=== PATIENT | male | born 1945 | race Caucasian/White ===

== ENCOUNTER 2021-12-27 02:17 | Inpatient (IN) | payer MEDICARE ==
[~2021-12-27] VITALS: Ht 177.8 cm; Wt 91.2 kg
[2021-12-27 03:42] LABS: BASOPHILS ABSOLUTE AUTO 0.05 K/mm3 (0.00-0.23); BASOPHILS PERCENT AUTO 1 % (0-2); EOSINOPHILS ABSOLUTE AUTO 0.36 K/mm3 (0.00-0.68); EOSINOPHILS PERCENT AUTO 6 % (0-6); Hematocrit 24.5 % (37.0-53.0); Hemoglobin 7.2 g/dL (13.5-17.5); IMMATURE GRAN ABSOLUTE AUTO 0.02 K/mm3 (0.00-0.10); IMMATURE GRAN PERCENT AUTO 0 % (0-1); LYMPHOCYTES ABSOLUTE AUTO 0.51 K/mm3 (0.84-5.20); LYMPHOCYTES PERCENT AUTO 8 % (21-46); MONOCYTES ABSOLUTE AUTO 0.64 K/mm3 (0.16-1.47); MONOCYTES PERCENT AUTO 10 % (4-13); Mean Corpuscular HGB 26.8 pg (26.0-34.0); Mean Corpuscular HGB Conc 29.4 g/dL (31.5-36.5); Mean Corpuscular Volume 91 fL (80-100); Mean Platelet Volume 10.1 fL (9.1-12.4); NEUTROPHILS ABSOLUTE AUTO 4.68 K/mm3 (1.96-9.15); NEUTROPHILS PERCENT AUTO 75 % (41-73); Platelet Count 84 K/mm3 (150-400); RDW Coefficient Variation 18.9 % (11.7-14.2); RDW Standard Deviation 62.1 fL (35.1-46.3); Red Blood Cell Count 2.69 M/mm3 (4.30-5.90); White Blood Cell Count 6.26 K/mm3 (4.00-11.30)
[2021-12-27 03:54] LABS: International Normalized Ratio 1.48; Prothrombin Time Results 15.1 Sec (9.7-11.5)
[2021-12-27 03:59] LABS: Albumin, Blood 3.1 g/dL (3.4-5.0); Albumin/Globulin Ratio 1.2 (0.8-1.8); Bun/Creatinine Ratio 28.9 (12.0-20.0); Calcium, Blood 9.7 mg/dL (8.5-10.1); Creatinine, Blood 4.57 mg/dL (0.60-1.20); Globulin, Blood 2.5 g/dL (2.2-4.0); Total Protein, Blood 5.6 g/dL (6.4-8.2)
[2021-12-27] MEDS ORDERED: ALLO300 PO (04:27)
[2021-12-27] MEDS ORDERED: ALBU90OI6 INH (04:27)
[2021-12-27] MEDS ORDERED: ATORVASTATIN CA80 M1 PO (04:28)
[2021-12-27] MEDS ORDERED: CALC.25 PO (04:30)
[2021-12-27] MEDS ORDERED: Vitamin B-12100 MCG PO (04:33)
[2021-12-27] MEDS ORDERED: Vitamin D1000 UNI1 PO (04:33)
[2021-12-27] MEDS ORDERED: BENADRYL25 MG PO (04:34)
[2021-12-27] MEDS ORDERED: EPIPEN0.3 MG/0.3 IM (04:34)
[2021-12-27] MEDS ORDERED: LISI20 PO (04:35)
[2021-12-27] MEDS ORDERED: METO2.5 PO (04:40)
[2021-12-27] MEDS ORDERED: METO50ER PO (04:41)
[2021-12-27] MEDS ORDERED: MINO2.5 PO (04:46)
[2021-12-27] MEDS ORDERED: PANT40 PO (04:47)
[2021-12-27] MEDS ORDERED: MIRALAX17 GM PO (04:47)
[2021-12-27] MEDS ORDERED: POTCHL20ER PO (04:48)
[2021-12-27] MEDS ORDERED: TORSE20 PO (04:49)
[2021-12-27] MEDS ORDERED: B-1100 M1 PO (04:49)
[2021-12-27] MEDS ORDERED: Tetrahydrozolin15 ML RIGHTEYE (04:49)
[2021-12-27] MEDS ORDERED: UBID10 PO (04:50)
--- NOTE | 2021-12-27 05:00 | NUR ---
ADMIT/SHIFT SUMMARY: Patient was direct admit from [facility] in [place]. Arrived via ambulance. SBA to toilet, reported no dizziness but did sway while ambulating. AOx3. [place], forgetful at times. Able to state history and meds. States had GI bleed back in June at which they found an ulcer. He was removed off blood thinners at that time. He did have small bright bloody BM that was two blood clots. Later he had passed another small blood clot. Reports some numbness in bilateral feet. Lung sounds with wheezes upper lobes, diminished on left lower lobe. Cough chronic clear thin sputum. HX of COPD. No o2. Placed on 2 L NC due to drop in sats while sleeping in the 80's. Chronic Afib on the monitor, with multiform PVC's rate 70-80's. BP soft, with MAP 60-65. ABD very large distention, firm, states he is suppose to have a thorocentsis today but now he is here. BT active. Very little urine noted in toilet, history of CKD 4, GFR 13, Creatine 4.57. Peripherial ulcer to left posterior of leg. Pic taken and in chart. New dressings to cover, he requested for the ferablue dressings to stay in place. New orders noted, will be type and cross and 1 unit of blood will be started. Per Dr. Tanika Awad was already consult. Will report to dayshift.
--- NOTE | 2021-12-27 07:19 | NUR ---
PT AWAKE, ALERT, BUT VERY RESTLESS. CURRENT CIWA 12, BUT PT ORIENTED TO SELF AND SURROUNDINGS AND ABLE TO FOLLOW COMMANDS. DR. HERZOG NOTIFIED OF CIWA AND PT MED WITH ATIVAN 2 MG IVP X 1.
[2021-12-27 07:29] LABS: Hematocrit 21.5 % (37.0-53.0); Hemoglobin 6.5 g/dL (13.5-17.5)
--- NOTE | 2021-12-27 08:00 | NUR ---
PT EXTREMELY RESTLESS AND AGITATED DESPITE MED WITH ATIVAN-SEE EMAR. DR. HERZOG AWARE. CIWA 30. ECG SHOWS AF WITH ECTOPY. RATE 80-100'S. MAP TRENDING 70'S. LUNGS WHEEZY TO UPPER LOBES AND DIMINISHED IN THE BASES. PT SOB WITH EXERTION, BUT MAINTAINS SATS<90% ON 2 LITERS NASAL CANULA. OCCASIONAL, NONPRODUCTIVE COUGH NOTED. ABDOMINAL ASCITES NOTED. PT HAS NOT VOIDED OR HAD A BM SO FAR THIS SHIFT. SKIN IF PALE, COOL, AND DIAPHORETIC.
--- NOTE | 2021-12-27 10:00 | NUR ---
PT REMAINS RESTLESS, AGITATED, AND CONFUSED. CIWA 30. DR. HERZOG AWARE-ORDER GIVEN TO INITIATE PRECEDEX DRIP-INITIATED @ 0.4 MCG/KG/MIN. SOFT WRIST RESTRAINTS PLACED FOR PT SAFETY. # 18 FR TEMP ABDI INSERTED AND U/A SENT PER INSERTION PROTOCOL.
--- NOTE | 2021-12-27 10:45 | NUR ---
PT INCONTINENT OF LARGE, BRIGHT, RED, BLOODY STOOL. MAP TRENDING 60-65. PT RESTING QUIETLY ON PRECEDEX DRIP WHEN NOT DISTURBED.BED BATH AND LINEN CHANGE COMPLETED-TOLERATED WELL.
--- NOTE | 2021-12-27 12:00 | NUR ---
DR. BALTAZAR UPDATED TO CURRENT VS AND STATUS. MD MADE AWARE THAT PT INCONTINENT OF A LARGE AMOUNT OF BRIGHT, RED, BLOODY STOOL. # 3 UNIT PRBC'S TRANSFUSING. MAP TRENDING LESS THAN 60. ORDER GIVEN FOR LEVOPHED DRIP. DR. BALTAZAR TO DO EGD WITH MAC @ APROX. 1500.
--- NOTE | 2021-12-27 12:25 | NUR ---
MAP STILL TRENDING LESS THAN 60. DR. HERZOG GIVEN UPDATE. ORDER GIVEN FOR PICC LINE. REPORT GIVEN TO GERRI MELVIN.
[2021-12-27 12:50] LABS: Source, Urine Foley catheter
[2021-12-27 13:03] LABS: Appearance, Urine Clear (Clear); Bilirubin, Urine Neg (Neg); Blood, Urine 2+ (Neg); Color, Urine Yellow (P-Yellow); Glucose Qualitative, Urine Neg (Neg); Ketones, Urine Neg (Neg); Leukocyte Esterase, Urine Neg (Neg); Nitrite, Urine Neg (Neg); Protein, Urine 2+ (Neg); Specific Gravity, Urine 1.015 (1.003-1.022); Urobilinogen, Urine NORM (Normal)
[2021-12-27 13:19] LABS: Bacteria Rare /hpf; Red Blood Cells, Urine 0-2 /hpf (0-2); Squamous Epithelial Cells Rare /hpf (Few); White Blood Cells, Urine 0-2 /hpf (0-5)
[2021-12-27 13:41] LABS: Hematocrit 22.6 % (37.0-53.0); Hemoglobin 6.9 g/dL (13.5-17.5)
[2021-12-27 14:59] LABS: Influenza A, PCR NEGATIVE (NEGATIVE); Influenza B, PCR NEGATIVE (NEGATIVE); Resp Syncytial Virus, PCR NEGATIVE (NEGATIVE); SARS-Cov-2 (COVID-19) PCR, MMC NEGATIVE (NEGATIVE)
--- NOTE | 2021-12-27 15:24 | NUR ---
12/27/21 1524 Max Cota See Anesthesia record DR CUENCA
--- NOTE | 2021-12-27 20:30 | NUR ---
ASSUMED CARE AT 1200. PT DROWSY BUT AROUSABLE ON 0.9 OF PRECEDEX. ORIENTEDX2. FOLLOWS COMMANDS. ON 4L NC. HYPOTENSIVE SHORTLY AFTER AND WAS STARTED ON LEVOPHED. PRECEDEX SLOWLY TITRATED OFF, SEE ICU FLOWSHEET. NOTED TO HAVE SIGNIFICANT ASCITES, DISCUSSED W DR. LOWE. TODAY PT RECIEVED A TOTAL OF 3U PRBCS, 2 U PLASMA, 1 UNIT PLATELETS. ALSO RECEIVED TXA AND VITAMIN K. SEE EMAR. AT THIS TIME, BP STABLE ON 4MCG/MIN OF LEVOPHED. LARGE BRIGHT RED LIQUID BM AFTER EGD, AWARE. NOW ON BIPAP AT 12/6 100% FIO2. GTTS: OCTREOTIDE, PROTONIX, LEVOPHED, TXA.
--- NOTE | 2021-12-27 20:47 | NUR ---
ASSUMED CARE OF PATIENT AT 1900, PT LYING IN BED WITH BIPAP IN PLACE 08/20 RATE 14, FIO2 100%, SATS LO 90'S. 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 DR. LAWSON IN TO REVIEW WITH H[employer] S[employer] PHYSICAL EDUCATION TEACHER, AWAITING OFFICIAL REPORT. HE RETURNS TO SAY THAT NOT A GOOD CANDIDATE TO SHIP, SPEAKING WITH . PHONE CALL TO TO UPDATE, SHE UNDERSTANDS, SAYS WILL COME IN THE MORNING. PT ASKED IF HE WOULD LIKE HIS HS MED REQUIP, HE STATES NO, HE WANTS TO HOLD IT. NO OTHER CHANGES.
--- NOTE | 2021-12-27 22:58 | NUR ---
PT WITH LARGE BLOODY STOOL, INCONTINENT. HAD ASKED TO USE THE TOILET IN THE ROOM BUT WAS UNABLE TO CONTROL HIS BOWELS. ASSISTED WITH THE CLEANING AND HE TOLERATED WELL. HE WAS ASKING ABOUT THE BIPAP AND HOW LONG HE NEEDED TO STAY ON IT. ENCOURAGEMENT GIVEN.
--- NOTE | 2021-12-28 02:58 | NUR ---
PT UP TO COMMODE IN THE ROOM AT 2330, 300ML DARK RED STOOL. RETURNED TO BED, PT WAS ADAMANT TO GET OUT OF BED. HE WAS WEAK, MOVED WITH ASSISTANCE. WAS SHORT OF BREATH. PT UP AGAIN AT 0200 TO USE THE COMMODE IN THE ROOM, 100ML OF RED STOOL. PT RETURNS TO BED. MORE ALERT AND ORIENTED. RETURNS TO BED, TAKES IN A COUPLE OF ICE CHIPS, RETURNS TO BIPAP. SLEEPING NOW. CALL LIGHT IN REACH.
[2021-12-28 04:16] LABS: Hemoglobin 7.4 g/dL (13.5-17.5); Mean Corpuscular HGB 27.8 pg (26.0-34.0); Mean Corpuscular HGB Conc 30.8 g/dL (31.5-36.5); Mean Corpuscular Volume 90 fL (80-100); Mean Platelet Volume 11.1 fL (9.1-12.4); Platelet Count 90 K/mm3 (150-400); RDW Coefficient Variation 18.5 % (11.7-14.2); RDW Standard Deviation 58.4 fL (35.1-46.3); Red Blood Cell Count 2.66 M/mm3 (4.30-5.90); White Blood Cell Count 8.37 K/mm3 (4.00-11.30)
[2021-12-28 04:40] LABS: Bun/Creatinine Ratio 27.9 (12.0-20.0); Calcium, Blood 8.9 mg/dL (8.5-10.1); Creatinine, Blood 4.52 mg/dL (0.60-1.20); Potassium, Blood 4.4 mmol/L (3.5-5.5)
--- NOTE | 2021-12-28 04:48 | NUR ---
DR RAMIREZ HERE TO SPEAK WITH PATIENT, PATIENT CONTINUES TO INSIST THAT HE BE A FULL CODE, THAT HE BE RESUSCITATED. HE WOULD LIKE THE FULL WORK UP. ORDERS ADDITIONAL PRBC'S-4 UNITS- AND FFP-2 UNITS. THE PROCESS HAS BEGUN, PT TOLERATING WELL. HE IS NOW HAVING HEMOPTOSIS.
--- NOTE | 2021-12-28 06:09 | NUR ---
TWO UNITS OF FFP GIVEN, 2ND UNIT OF PRBC'S STARTED. TOLERATING WELL, CONTINUES ON BIPAP. 08/20 70%. PT DOES DESATURATE WHEN OFF BIPAP, HE DROPS TO THE LOW 80S EVEN WITH NASAL CANNULA. CONTINUES TO ASK FOR ORAL INTAKE, ie COFFEE, OATMEAL, EGG. ALSO COMPLAINS OF STINGING AT URETHRA FROM ABDI CATH. NO OTHER COMPLAINTS. WILL CONTINUE BLOOD INFUSION, MONITOR AND REPORT OFF WHEN ABLE.
[2021-12-28 11:27] LABS: Hemoglobin 9.3 g/dL (13.5-17.5)
[2021-12-28 14:25] LABS: Hematocrit 27.7 % (37.0-53.0); Hemoglobin 8.8 g/dL (13.5-17.5)
--- NOTE | 2021-12-28 15:58 | NUR ---
Met with physician the patient and his family to review the seriousness of his condition and prognosis. physian reviewed his condition and that there are no interventions that will improve his health. Pt struggled with tracking conversation kept diverting the subject to his leagal issues and his out patient appointments. Concern for patients ability to make decisions. at bedside following the conversation was distraught by his prognosis. had to be very straight forward and address risk for sudden and need for hospice. Advised pt on how he could get the legal help he needs. discussed what hospice would look like. advised hism that if he went home to the [facility] he will end back up at the hospital. pt kps score is 30%. He may not tolerate repeat infussions. will follow up with and family. Pt considering calling his sister with update. Encouraged him to do it soon. Will follow up.
--- NOTE | 2021-12-28 18:17 | NUR ---
NO ACUTE EVENTS THIS SHIFT. PATIENT A&OX4. CALM AND COOPERATIVE. UP IN CHAIR THIS MORNING. HAD MULTIPLE SMALL RED STOOLS. 4LNC. ABDOMEN REMAINS SEVERELY DISTENDED. DISCUSSED WITH MDS. AT BEDSIDE TODAY. RECEIVED 1 UNIT PRBCS THIS SHIFT. REMAINS ON TXA, OCTREOTIDE AND SANDOSTATIN.
[2021-12-28 18:52] LABS: Hematocrit 27.8 % (37.0-53.0); Hemoglobin 8.7 g/dL (13.5-17.5)
--- NOTE | 2021-12-28 19:15 | NUR ---
ASSUMED CARE. REPORT RECEIVED FROM LUIS TALLEY. PT RESTING IN BED ATT. ON O2 VIA NC AT 5 L/MIN. PT ALERT AND ORIENTED, CALL LIGHT WITHIN REACH. PT HAS PICC IN GEN[place]EVA, R/AC, L/AC AND R/FOREARM X 2 IV ACCESS. IV PUMPS RUNNING PROTONIX AT 10 ML/HR, OCTREOTIDE AT 25 ML/HR AND NS AT 10 ML/HR. NO ACUTE NEEDS AT THIS TIME, WILL CONTINUE TO MONITOR.
[2021-12-28 22:20] LABS: Hematocrit 27.4 % (37.0-53.0); Hemoglobin 8.9 g/dL (13.5-17.5)
[2021-12-29 02:33] LABS: BASOPHILS ABSOLUTE AUTO 0.04 K/mm3 (0.00-0.23); BASOPHILS PERCENT AUTO 1 % (0-2); EOSINOPHILS ABSOLUTE AUTO 0.57 K/mm3 (0.00-0.68); EOSINOPHILS PERCENT AUTO 9 % (0-6); Hematocrit 26.7 % (37.0-53.0); Hemoglobin 8.5 g/dL (13.5-17.5); IMMATURE GRAN ABSOLUTE AUTO 0.03 K/mm3 (0.00-0.10); IMMATURE GRAN PERCENT AUTO 1 % (0-1); LYMPHOCYTES ABSOLUTE AUTO 0.55 K/mm3 (0.84-5.20); LYMPHOCYTES PERCENT AUTO 9 % (21-46); MONOCYTES ABSOLUTE AUTO 0.88 K/mm3 (0.16-1.47); MONOCYTES PERCENT AUTO 14 % (4-13); Mean Corpuscular HGB 28.8 pg (26.0-34.0); Mean Corpuscular HGB Conc 31.8 g/dL (31.5-36.5); Mean Corpuscular Volume 91 fL (80-100); Mean Platelet Volume 11.3 fL (9.1-12.4); NEUTROPHILS ABSOLUTE AUTO 4.41 K/mm3 (1.96-9.15); NEUTROPHILS PERCENT AUTO 68 % (41-73); Platelet Count 73 K/mm3 (150-400); RDW Coefficient Variation 17.8 % (11.7-14.2); RDW Standard Deviation 56.7 fL (35.1-46.3); Red Blood Cell Count 2.95 M/mm3 (4.30-5.90); White Blood Cell Count 6.48 K/mm3 (4.00-11.30)
[2021-12-29 02:50] LABS: Bun/Creatinine Ratio 27.6 (12.0-20.0); Calcium, Blood 8.7 mg/dL (8.5-10.1); Creatinine, Blood 4.63 mg/dL (0.60-1.20); Potassium, Blood 4.3 mmol/L (3.5-5.5)
--- NOTE | 2021-12-29 06:20 | NUR ---
SHIFT SUMMARY. PT RESTED IN BED FOR MOST OF SHIFT, UP TO CHAIR ONCE, BEDSIDE COMMODE TWICE. PT ALERT AND ORIENTED, VS STABLE THROUGHOUT SHIFT. PT ON 02 VIA NC AT 5 L/MIN. PICC IN PLACE, WNL. R/AC IV DC'D, L/AC, R/FOREARM IVs REMAIN IN PLACE. PROTONIX RUNNING AT 10 ML/HR, OCTREOTIDE AT 25 ML/HR AND NS AT 10 ML/HR. PT HAD ONE SMALL BM, LOOSE, BLACK AND RED, NO AV BLOOD OBSERVED. VOIDED 100 MLS URINE. SEE SHIFT ASSESSMENT FOR FURTHER DETAILS. WILL CONTINUE TO MONITOR AND REPORT OFF TO DAYSHIFT RN.
[2021-12-29 07:10] LABS: HBSAG SCREEN Negative (Negative); HCV AB <0.1 (0.0-0.9); HEP A AB, IGM Negative (Negative); HEP B CORE AB, IGM Negative (Negative); HEP B CORE AB, TOT Negative (Negative); HEP C VIRUS AB <0.1 (0.0-0.9)
[2021-12-29 12:22] LABS: Hematocrit 27.2 % (37.0-53.0); Hemoglobin 8.6 g/dL (13.5-17.5)
--- NOTE | 2021-12-29 18:21 | NUR ---
SHIFT SUMMARY PT A&OX4. CALM, PLEASANT AND COOPERATIVE. UP TO CHAIR AND COMMODE MULTIPLE TIMES. NO EPISODES OF RECTAL BLEEDING NOTED TODAY. HGB REMAINS STABLE. COMPLAINED OF DISCOMFORT IN ABDOMEN RELATED TO ASCITES. HAD PARACENTESIS THIS AFTERNOON, 5L REMOVED. PT STATES HE FEELS MUCH MORE COMFORTABLE AFTER THIS FLUID REMOVAL. SANDOSTATIN AND PROTONIX RUNNING. NO PRESSORS OR BLOOD TRANSFUSIONS REQUIRED TODAY. PLACED ON ROOM AIR THIS EVENING AND SATS REMAINING >90% SO FAR.
--- NOTE | 2021-12-29 19:05 | NUR ---
ASSUMED CARE. REPORT RECEIVED FROM LUIS TALLEY. PT RESTING IN BED ATT. ALERT AND ORIENTED, ON ROOM AIR, VS STABLE. PICC IN PLACE, GENOVEVA. IV ACCESS IN L/AC AND R/FOREARM. IV IN R/HAND DC'D FOR PAIN. PROTONIX RUNNING AT 10 ML/HR, OCTREOTIDE AT 25 ML/HR, NS AT 10 ML/HR. NO ACUTE NEEDS NOTED, WILL CONTINUE TO MONITOR.
[2021-12-30 03:38] LABS: BASOPHILS ABSOLUTE AUTO 0.03 K/mm3 (0.00-0.23); BASOPHILS PERCENT AUTO 1 % (0-2); EOSINOPHILS ABSOLUTE AUTO 0.55 K/mm3 (0.00-0.68); EOSINOPHILS PERCENT AUTO 8 % (0-6); Hematocrit 27.2 % (37.0-53.0); Hemoglobin 8.5 g/dL (13.5-17.5); IMMATURE GRAN ABSOLUTE AUTO 0.03 K/mm3 (0.00-0.10); IMMATURE GRAN PERCENT AUTO 1 % (0-1); LYMPHOCYTES ABSOLUTE AUTO 0.41 K/mm3 (0.84-5.20); LYMPHOCYTES PERCENT AUTO 6 % (21-46); MONOCYTES ABSOLUTE AUTO 0.72 K/mm3 (0.16-1.47); MONOCYTES PERCENT AUTO 11 % (4-13); Mean Corpuscular HGB 28.8 pg (26.0-34.0); Mean Corpuscular HGB Conc 31.3 g/dL (31.5-36.5); Mean Corpuscular Volume 92 fL (80-100); Mean Platelet Volume 10.8 fL (9.1-12.4); NEUTROPHILS ABSOLUTE AUTO 4.87 K/mm3 (1.96-9.15); NEUTROPHILS PERCENT AUTO 74 % (41-73); Platelet Count 69 K/mm3 (150-400); RDW Coefficient Variation 18.6 % (11.7-14.2); RDW Standard Deviation 60.2 fL (35.1-46.3); Red Blood Cell Count 2.95 M/mm3 (4.30-5.90); White Blood Cell Count 6.61 K/mm3 (4.00-11.30)
[2021-12-30 03:51] LABS: Bun/Creatinine Ratio 26.1 (12.0-20.0); Calcium, Blood 8.4 mg/dL (8.5-10.1); Creatinine, Blood 4.87 mg/dL (0.60-1.20); Potassium, Blood 4.2 mmol/L (3.5-5.5)
--- NOTE | 2021-12-30 06:43 | NUR ---
SHIFT SUMMARY. PT RESTED IN BED THROUGHOUT SHIFT. UP TO COMMODE WITH WALKER AND BACK TO BED. PUT ON 02 AT 2 L/MIN VIA NC FOR SLEEPING. PICC LINE WNL, IV ACCESS UNCHANGED. PROTONIX RUNNING AT 10 ML/HR, OCTREOTIDE AT 25 ML/HR, NS AT 10 ML/HR. VS STABLE THROUGHOUT SHIFT, SEE ASSESSMENTS FOR FURTHER DETAILS. WILL CONTINUE TO MONITOR AND REPORT OFF TO DAYSHIFT RN.
[2021-12-30 12:36] LABS: Hematocrit 27.9 % (37.0-53.0); Hemoglobin 8.6 g/dL (13.5-17.5)
--- NOTE | 2021-12-30 17:57 | NUR ---
SHIFT SUMMARY NO ACUTE EVENTS THIS SHIFT. HGB REMAINS STABLE. PT A&OX4, STRENGTH INCREASING. NOW OFF PROTONIX GTT AND OCTREOTIDE GTT. ABDOMEN INCREASINGLY DISTENDED. 2L NC, COUGHS OCCASIONALLY. NO BLOODY STOOLS TODAY.
--- NOTE | 2021-12-30 19:05 | NUR ---
ASSUMED CARE. REPORT RECEIVED FROM LUIS RN. PT RESTING IN BED, ON O2 VIA NC AT 2 L/MIN. PT ALERT AND ORIENTED, CALL LIGHT WITH IN REACH. VS STABLE, NO ACUTE NEEDS AT THIS TIME. WILL CONTINUE TO MONITOR.
[2021-12-30 20:13] LABS: Hematocrit 28.6 % (37.0-53.0); Hemoglobin 8.7 g/dL (13.5-17.5)
--- NOTE | 2021-12-30 22:18 | NUR ---
76 YR OLD MALE RECEIVED FROM ICU WITH DX OF GI BLEED. ORGANIZATIONAL EFFECTIVENESS CONSULTANT VOICED FINISHED SANDOSTATIN DRIP, NOW ON PROTONIX. ALERT AND ORIENTED. PLACED ON [employer]. ORIENTED TO CALL LIGHT AND CALL LIGHT IN REACH
--- NOTE | 2021-12-30 22:42 | NUR ---
TRANSFER. PT MOVED TO ROOM 335 AT APPROXIMATELY 2153. VS STABLE, BELONGINGS TRANSFERRED WITH PATIENT. REPORT GIVEN TO MEDICAL FLOOR RN.
--- NOTE | 2021-12-31 01:11 | NUR ---
ASSISTED UP TO BATHROOM, PASSED GAS, VOIDED LIGHT YELLOW. NO NOTED BLACK, TARRY STOOLS. ASSISTED BACK TO BED. AFFECT CHEERFUL. IV ALBUMIN INFUSING - SEE MAR FOR DETAILS. CALL LIGHT IN REACH
--- NOTE | 2021-12-31 02:49 | NUR ---
GLASSIE SUMMARY RECEIVED PT FROM ICU EARLIER IN THE SHIFT. DX GI BLEED. NO NOTED HEMOPTYSIS OR BLOODY STOOLS OF THIS WRITING. UP TO BATHROOM EARLIER, PASSED GAS AND VOIDED CLEAR YELLOW URINE. ALBUMIN ADMINISTERED ORDERED - SEE MAR FOR DETAILS. DESATTED MID SHIFT ANS WAS PLACED ON O2 2L/MIN PER NC. O2 SATS BACK IN THE 90'S AFTER. CALL LIGHT IN REACH. NO NOTED S/S ACUTE DISTRESS. HAS BEEN RESTING QUIETLY WITH FEW INTERRUPTIONS MENTIONED ABOVE.
[2021-12-31 05:10] LABS: Hematocrit 27.4 % (37.0-53.0); Hemoglobin 8.5 g/dL (13.5-17.5)
[2021-12-31 13:13] LABS: Hematocrit 29.2 % (37.0-53.0)
[2021-12-31 21:01] LABS: Hematocrit 29.7 % (37.0-53.0)
--- NOTE | 2022-01-01 04:33 | NUR ---
SHIFT SUMMARY ADMITTED FOR GI BLEED. FULL CODE. PLAN IS FOR POSSIBLY ANOTHER PARACENTESIS. DC HOME VS. PLACEMENT. PICC LINE IN RUE. 2 LPM O2 @ HS PRN. RENAL DIET. ALBUMIN INFUSED ORDERED. HE IS A&O X4. PARACENTESIS YESTERDAY YIELDED 5 L OUT.
--- NOTE | 2022-01-01 16:44 | NUR ---
SHIFT SUMMARY PT WAS ADMITTED FOR A GI BLEED, HAS SIGNIFICANT ASCITES. FULL CODE. PT AOX4. PARACENTESIS TODAY, REMOVED 8.1L. PT IS RECEIVING ALBUMIN. PT IS ON 2L O2 PRN. PT IS FAIRLY INDEPENDENT, LIKES TO USE A WALKER. PT IS ON A RENAL DIET. STILL TRYING TO DECIDED WHETHER PT SHOULD GO HOME OR TO REHABILITATION. PT HAS PICC IN [facility]. PT'S TELE WAS D/C'D. PT'S IS ON HER WAY HERE FROM [place], PLAN IS TO DISCHARGE THE PT ON 01/02/22. WILL CONTINUE TO MONITOR VITAL SIGNS UNTIL NOC SHIFT TRANSFER.
--- NOTE | 2022-01-01 18:55 | NUR ---
THIS RN REVIEWS STUDENT NURSE DOCUMENTATION AND IS IN AGREEMENT WITH HER CHARTING.
--- NOTE | 2022-01-02 04:10 | NUR ---
SHIFT SUMMARY ADMITTED FOR GI BLEED. FULL CODE. PLAN IS DC HOME VS SNF. PICC LINE IN PLACE RUE. RENAL DIET. A&O X4. PARACENTESIS PERFORMED ON PREVIOUS SHIFT FOR ASCITES . INDEPENDENT - BRP. 2 LPM O2 @ PM - PRN. ALBUMIN INFUSED THIS SHIFT ORDERED. HX: ETOH, CIRRHOSIS, CKD5, CHF. REFUSES DIALYSIS.
[2022-01-02 08:03] LABS: Hematocrit 29.8 % (37.0-53.0); Hemoglobin 9.1 g/dL (13.5-17.5)
[2022-01-02] MEDS ORDERED: COENZYME Q-1030 MG PO (11:52)
[2022-01-02] MEDS ORDERED: MIDO5 PO (11:53)
[2022-01-02] MEDS ORDERED: LASIX20 M2 PO (11:53)
[2022-01-02] MEDS ORDERED: SPIR25 PO (11:54)
--- NOTE | 2022-01-02 12:55 | NUR ---
DISCHARGE SUMMARY PT A/O X4; PLEASANT AND COOPERATIVE WITH CARE. PLEUREX DRAIN NOT PLACED AT THIS TIME. PT IS GOING HOME TO [place] AND IS GOING TO HAVE HOME HEALTH. HE IS TO FOLLOW UP WITH HIS PRIMARY CARE DOCTOR AND WITH HIS GI DOCTOR. MEDICATIONS FAXED TO [facility] IN [place] AND PICC LINE PULLED BY GAME ATTENDANT. DC'D HOME WITH .
== END 2022-01-02 12:56 | disposition home health service (06) | DRG 441 ==
LOC: ICUE 02:17 → ICUW 02:58 → MEDS 02:58 → ICUW 12-30 12:00 → MEDS 12-30 21:55 → ENPENDDIS 01-01 17:54 → MEDS 01-02 12:56
PROVIDERS: Family Medicine; Student in an Organized Health Care Education/Training Program; ADMIT Family Medicine
PROC: 0DJ08ZZ Inspection of Upper Intestinal Tract, Via Natural or Artificial Opening Endoscopic (ICD-10-PCS; 2021-12-27)
PROC: 0W3P8ZZ Control Bleeding in Gastrointestinal Tract, Via Natural or Artificial Opening Endoscopic (ICD-10-PCS; 2021-12-27)
PROC: 3E033XZ Introduction of Vasopressor into Peripheral Vein, Percutaneous Approach (ICD-10-PCS; 2021-12-27)
PROC: 30233N1 Transfusion of Nonautologous Red Blood Cells into Peripheral Vein, Percutaneous Approach (ICD-10-PCS; 2021-12-28)
PROC: 30233K1 Transfusion of Nonautologous Frozen Plasma into Peripheral Vein, Percutaneous Approach (ICD-10-PCS; 2021-12-28)
PROC: 0W9G3ZZ Drainage of Peritoneal Cavity, Percutaneous Approach (ICD-10-PCS; principal; 2021-12-29)
PROC: 0W9G3ZZ Drainage of Peritoneal Cavity, Percutaneous Approach (ICD-10-PCS; 2022-01-01)
DX: K76.6 Portal hypertension (principal); R57.8 Other shock; K92.1 Melena; N18.5 Chronic kidney disease, stage 5; I50.32 Chronic diastolic (congestive) heart failure; I42.9 Cardiomyopathy, unspecified; I13.2 Hypertensive heart and chronic kidney disease with heart failure and with stage 5 chronic kidney disease, or end stage renal disease; Z20.822 Contact with and (suspected) exposure to COVID-19; K70.31 Alcoholic cirrhosis of liver with ascites; K31.89 Other diseases of stomach and duodenum; G25.81 Restless legs syndrome; J44.9 Chronic obstructive pulmonary disease, unspecified; F10.10 Alcohol abuse, uncomplicated; I48.91 Unspecified atrial fibrillation; I35.0 Nonrheumatic aortic (valve) stenosis; I27.20 Pulmonary hypertension, unspecified; D63.1 Anemia in chronic kidney disease; N40.0 Benign prostatic hyperplasia without lower urinary tract symptoms; E78.5 Hyperlipidemia, unspecified; K21.9 Gastro-esophageal reflux disease without esophagitis; Z98.890 Other specified postprocedural states; Z87.891 Personal history of nicotine dependence
CPT/HCPCS: 0241U; 36415; 36430; 36569; 49083; 71045; 74177; 80048; 80053; 80074; 81001; 82105; 85014; 85018; 85025; 85027; 85610; 86317; 86704; 86708; 86803; 86850; 86900; 86901; 86920; 86923; 87340; 93306; 94640; 94660; 94664; 94760; 94762; 97110; 97112; 97116; 97162; 97165; 97530; 97535; A9270; C1751; C1769; C9113; J0171; J0696; J1430; J2001; J2060; J2354; J2704; J2765; J3430; J7040; J7050; J7060; P9016; P9046; P9053; P9059; Q9967